=== PATIENT | male | born 1965 | race Caucasian/White ===

== ENCOUNTER → 2018-09-08 | Outpatient (CLI) | payer OTHER ==
[~2018-09-08] VITALS: Ht 188 cm; Wt 131.1 kg
[~2018-09-08] MED LIST: GLUCOPHAGE1000 MG PO; HUMALOG100 U/ML SQ; LANTUS100 U/ML SQ; LISINOPRIL20 MG PO; MEDROL 4MG DOSPA4 MG PO; NORCO 325 MG-7.1 TAB PO; TOPROL XL100 MG PO; TRILIPIX 135MG PO; VICTOZA6 MG/ML SQ; VIVLODEX10 MG PO; ZANAFLEX2 MG PO; ZESTRIL40 MG PO; [UNRECOGNIZED DRUG - OTHER] SQ
[2018-09-08 08:39] VITALS: BP 165/99; PULSE 99
[2018-09-08 14:41] VITALS: BP 163/92; PULSE 106
[2018-09-08 14:43] VITALS: BP 160/94; PULSE 99
[2018-09-08 14:44] VITALS: BP 148/93; PULSE 97
== END ==
LOC: COL.RAD 08:08
DX: R07.89 Other chest pain (principal)
CPT/HCPCS: A9500; J2785